=== PATIENT | male | born 1950 | race Caucasian/White ===

== ENCOUNTER 2017-01-18 06:22 | Day surgery (SDC) | payer MEDICARE, BC ==
[~2017-01-18] VITALS: Ht 175.3 cm; Wt 107.4 kg
[2017-01-18 07:07] VITALS: BP 127/74; PULSE 57; RESP 18; TEMP 97.9; O2SAT 95
[2017-01-18] MEDS ORDERED: HYDR-3288 PO (07:15)
[2017-01-18] MEDS ORDERED: LOSA100T PO (07:15)
[2017-01-18] MEDS ORDERED: OMEP20TA PO (07:15)
[2017-01-18] MEDS ORDERED: ATOR10TA15 PO (07:15)
[2017-01-18] MEDS ORDERED: ASPI1TAB69 PO (07:15)
[2017-01-18] MEDS ORDERED: PAXI30TA7 PO (07:15)
[2017-01-18] MEDS ORDERED: GABA300C5 PO (07:15)
[2017-01-18] MEDS ORDERED: NITR1SUB3 SL (07:15)
[2017-01-18] MEDS ORDERED: LEVO50TA53 PO (07:15)
[2017-01-18] MEDS ORDERED: VITA100064 PO (07:15)
[2017-01-18] MEDS ORDERED: METO25TA3 PO (07:15)
[2017-01-18] MEDS ORDERED: FENO160T PO (07:15)
[2017-01-18] MEDS ORDERED: AMLO5TAB2 PO (07:15)
[2017-01-18] MEDS ORDERED: HEPARIN-NS/PF INJ 500 ML ONE (08:08)
[2017-01-18] MEDS ORDERED: MIDAZOLAM HCL 2 MG/2 ML VIAL ONE (08:09)
[2017-01-18] MEDS ORDERED: HEPARIN SODIUM - IV 10,000 UNITS/10 ML VIAL ONE (08:33)
[2017-01-18] MEDS ORDERED: CLOPIDOGREL 300 MG TAB ONE (08:59)
[2017-01-18] MEDS ORDERED: IOHEXOL 350 MG/ML 100 ML BTL (for Cath Lab) OTHER ONE (09:00)
[2017-01-18] MEDS ORDERED: SODIUM CHLOR 0.9% 1000 ML INJ 1,000 ML IV SCH (09:07)
[2017-01-18] MEDS ORDERED: SODIUM CHLORIDE 0.9% FLUSH 10 ML FLUSH IV FLUSH PRN (09:15)
[2017-01-18] MEDS ORDERED: MISC INFORMATION XX ONE (09:15)
--- NOTE | 2017-01-18 14:03 | EKG ---
Date Performed: 01/18/2017 Time Performed: 09:35:30 PTAGE: 66 years EKG: Sinus bradycardia. Inferior T wave changes are nonspecific Low QRS voltages in limb leads B orderline ECG NO PREVIOUS TRACING DOCTOR: Marshall Hampton Interpretating Date/Time 01/18/2017 14:01:31
[2017-01-18] MEDS ORDERED: SODIUM CHLORIDE 0.9% FLUSH 10 ML FLUSH IV FLUSH SCH (21:00)
[2017-01-19] MEDS ORDERED: ASPIRIN 81 MG CHEW TAB PO SCH (09:00)
[2017-01-19] MEDS ORDERED: CLOPIDOGREL 75 MG TAB PO SCH (09:00)
--- NOTE | 2017-01-26 13:30 | MA ---
cc: BARBIE CRISTOBAL MD DATE: 01/18/2017 PROCEDURE Cardiac catheterization. PROCEDURAL STATEMENTS The patient was prepped and draped in the usual fashion. A 6 sheath was inserted percutaneously into the right femoral artery. Coronary arteriography was done with Phan preformed catheters. RESULTS The left main coronary was normal. The left anterior descending artery demonstrated some luminal irregularities in its proximal portion with a stenosis of 40-50% just proximal to the takeoff of a large septal x ray physician branch. The LAD then was relatively short, did not wrap the left ventricular apex. No other stenoses were seen. A ramus intermedius branch was present which was very small, approximately 1 mm in diameter. A subtotal stenosis was present in its proximal portion. The left circumflex artery was a relatively large artery. A 90% stenosis was present in its proximal portion just proximal to the takeoff of the first large obtuse marginal branch. The remainder of the obtuse marginal and circumflex was essentially normal. The right coronary was anatomically dominant and there was a high-grade stenosis noted in its proximal portion compromising the lumen by approximately 90% or greater. INTERVENTION Following consent heparin was administered. An FR-4 guide catheter was used to cannulate the right coronary and a Prowater wire advanced into the distal artery. Primary stenting was unable be accomplished due to failure to pass the lesion, and balloon angioplasty was initiated with a 2.5 balloon which resulted in a fairly good cosmetic result with approximately 50% residual. A 3.0 x 12 mm stent was then deployed down the artery. This resulted in a good cosmetic result, although it did appear that the stent was deployed somewhat distal to cover the entire artery. A second 3.0 x 12 mm stent was then deployed with an excellent cosmetic result. PACHECO-III flow was present pre and post dilatation. An XB 3.5 guide was then used to cannulate the left main. A Prowater wire was advanced into the distal obtuse marginal and a 3.5 x 12 mm drug-eluting stent was then deployed into the left circumflex with an excellent cosmetic result. There was zero residual. PACHECO-III flow was present pre and post dilatation. The groin was then sealed with Angio-Seal technique. CONCLUSIONS Successful PTCA and stenting of the mid right coronary and proximal circumflex arteries. MD ALLI Mccarthy/IKER /1:09 PM /1:19 PM
== END 2017-01-18 14:10 | disposition home or self-care (01) ==
LOC: HDOC 06:22 → HDIC 06:23 → HDOC 14:10
PROVIDERS: ATTEND Internal Medicine Cardiovascular Disease
DX: I25.110 Atherosclerotic heart disease of native coronary artery with unstable angina pectoris (principal); Z79.02 Long term (current) use of antithrombotics/antiplatelets; Z79.82 Long term (current) use of aspirin
CPT/HCPCS: 85002; 92928; 92929; 93005; 93454; C1760; C1769; C1874; C1887; C1893; G0269; J1644; J2250; Q9967